=== PATIENT | male | born 1985 | race Caucasian/White ===

== ENCOUNTER 2019-06-26 10:14 | Emergency (ER) | payer MEDICAID ==
[~2019-06-26] VITALS: Ht 182.9 cm; Wt 99.8 kg
[2019-06-26 10:55] LABS: BASOPHILS # (AUTO) 0.1 /CMM (0.0-0.2); BASOPHILS % (AUTO) 0.7 % (0.0-2.0); EOSINOPHILS % (AUTO) 0.7 % (0.0-6.0); HEMATOCRIT 46 % (39-51); HEMOGLOBIN 15.5 g/dL (13.5-17.5); LYMPHOCYTES % (AUTO) 20.3 % (20.0-44.0); MEAN CORPUSCULAR HGB CONC 34 g/dl (31.0-36.0); MEAN CORPUSCULAR VOLUME 88 fL (80-96); MONOCYTES # (AUTO) 1.3 /CMM (0.1-1.30); MONOCYTES % (AUTO) 8.7 % (2.0-12.0); NEUTROPHILS # (AUTO) 10.4 /CMM (1.8-8.9); NEUTROPHILS % (AUTO) 69.6 % (43.0-81.0); PLATELET COUNT (AUTO) 188 /CMM (150-450); WHITE BLOOD COUNT (AUTO) 14.9 K/uL (4.3-11.0)
[2019-06-26] MEDS ORDERED: IV NS 0.9% 1,000 ML BAG IV ONE (11:00)
[2019-06-26 11:02] LABS: CALCIUM, SERUM 9.4 mg/dL (8.5-10.1); POTASSIUM 4.8 mmol/L (3.5-5.1)
[2019-06-26] MEDS ORDERED: CT SWABBABLE VALVE TRANS SET 1 EA INFUS.SET MC ONE (11:18)
[2019-06-26] MEDS ORDERED: IOHEXOL-300 100 ML VIAL IV ONE (11:18)
[2019-06-26] MEDS ORDERED: IV NS 0.9% 250 ML IV ONE (11:18)
--- NOTE | 2019-06-26 12:56 | NUR ---
CALLED [facility] TO SPEAK WITH RADIOLOGIST. CURRENTLY AWAY AT [facility]. LEFT PHONE NUMBER FOR THEM TO CALL BACK AT EARLIEST AVAILABLE.
[2019-06-26] MEDS ORDERED: HYDROMORPHONE 1 MG/1 ML DISP.SYRIN IV ONE (13:00)
[2019-06-26] MEDS ORDERED: HYDROMORPHONE HCL 2 MG TABLET PO PRN (13:00)
[2019-06-26] MEDS ORDERED: HYDROMORPHONE 1 MG/1 ML DISP.SYRIN ONE (13:08)
--- NOTE | 2019-06-26 14:44 | NUR ---
Dr. Quesada @ bedside regarding result of CT
[2019-06-26] MEDS ORDERED: IBUPROFEN 600 MG TABLET PO ONE ×2 (14:47→15:00)
--- NOTE | 2019-06-26 14:55 | NUR ---
Called [facility] for Antibiotic Meds
[2019-06-26] MEDS ORDERED: CLINDAMYCIN 600 MG in IV D5W 100 ML IV ONE (15:00)
[2019-06-26] MEDS ORDERED: CEFTRIAXONE 1GM BAG (ER ONLY) 1 GM/50 ML PIGGYBACK IV ONE (15:00)
[2019-06-26] MEDS ORDERED: CEFTRIAXONE 2 G in IV D5W 100 ML IV ONE (15:00)
[2019-06-26] MEDS ORDERED: DEXAMETHASONE SOD PHOSPHATE 10 MG/ML VIAL IV ONE (15:00)
[2019-06-26] MEDS ORDERED: DEXAMETHASONE SOD PHOSPHATE 10 MG/ML VIAL ONE (15:15)
[2019-06-26 16:00] VITALS: BP 133/78
--- NOTE | 2019-06-26 16:01 | NUR ---
Patient discharged to home in stable condition. Written and verbal after care instructions given. Patient verbalizes understanding of instruction.
--- NOTE | 2019-06-26 16:01 | NUR ---
Removed helplock from RAC noted cath intact no redness ,no edema
== END 2019-06-26 16:02 | disposition home or self-care (01) ==
LOC: ER 10:14
DX: J03.90 Acute tonsillitis, unspecified (principal); I10 Essential (primary) hypertension; F17.200 Nicotine dependence, unspecified, uncomplicated; Z90.49 Acquired absence of other specified parts of digestive tract
CPT/HCPCS: 36415; 70491; 80048; 85025; 96365; 96367; 96375; 99284; J0696; J1100; J1170; J3490; J7030; J7050; J7060 ×2; Q9967

== ENCOUNTER 2020-11-29 11:20 | Emergency (ER) | payer MEDICAID, OTHER ==
[~2020-11-29] VITALS: Ht 182.9 cm; Wt 95.3 kg
[2020-11-29] MEDS ORDERED: FAMOTIDINE (20 MG) 20 MG TABLET PO ONE (11:30)
[2020-11-29] MEDS ORDERED: diphenhydrAMINE HCL 50 MG/ML VIAL IV ONE (11:30)
[2020-11-29] MEDS ORDERED: methylPREDNISolone SOD SUCC 125 MG/2ML VIAL IV ONE (11:30)
[2020-11-29] MEDS ORDERED: IV NS 0.9% 1,000 ML IV ONE (11:30)
--- NOTE | 2020-11-29 11:30 | NUR ---
The patient bibs for c/o rash and hives started last night, no SOB 98% on room air. Respiration regular and unlabored. Will continue to monitor the patient.
[2020-11-29] MEDS ORDERED: methylPREDNISolone SOD SUCC 125 MG/2ML VIAL ONE (11:31)
[2020-11-29] MEDS ORDERED: diphenhydrAMINE HCL 50 MG/ML VIAL ONE (11:31)
[2020-11-29] MEDS ORDERED: FAMOTIDINE/PF INJ 20 MG/2 ML VIAL IV ONE (11:32)
[2020-11-29] MEDS ORDERED: PRED20TA PO (12:08)
[2020-11-29] MEDS ORDERED: EPIN0.3P3 IJ (12:08)
[2020-11-29] MEDS ORDERED: DIPH25CA83 PO (12:08)
[2020-11-29] MEDS ORDERED: FAMO-131 PO (12:08)
--- NOTE | 2020-11-29 12:14 | NUR ---
Patient discharged to home in stable condition. Written and verbal after care instructions given. Patient verbalizes understanding of instruction.
[2020-11-29 12:15] VITALS: BP 127/74
== END 2020-11-29 12:15 | disposition home or self-care (01) ==
LOC: ER 11:34
DX: T78.40XA Allergy, unspecified, initial encounter (principal); I10 Essential (primary) hypertension; F17.200 Nicotine dependence, unspecified, uncomplicated; Z90.49 Acquired absence of other specified parts of digestive tract; X58.XXXA Exposure to other specified factors, initial encounter
CPT/HCPCS: 96361; 96374; 96375; 99284; J1200; J2930; J3490; J7030

== ENCOUNTER 2024-12-03 14:42 | Emergency (ER) | payer MEDICAID, OTHER ==
[~2024-12-03] VITALS: Ht 182.9 cm; Wt 79.4 kg
[~2024-12-03 14:42] MED LIST: DIPH25CA83 PO; EPIN0.3P3 IJ; FAMO-131 PO; PRED20TA PO
[2024-12-03 17:20] VITALS: TEMP 98.3
[2024-12-03] MEDS ORDERED: KETOROLAC TROMETHAMINE 15 MG/ML VIAL ONE (18:21)
[2024-12-03] MEDS: KETOROLAC TROMETHAMINE 15 MG/ML VIAL IM ONE (18:28)
[2024-12-03 19:03] VITALS: BP 115/75; O2SAT 98
== END 2024-12-03 19:03 | disposition home or self-care (01) ==
LOC: ER 14:49
DX: S42.032A Displaced fracture of lateral end of left clavicle, initial encounter for closed fracture (principal); F17.200 Nicotine dependence, unspecified, uncomplicated; I10 Essential (primary) hypertension; M54.6 Pain in thoracic spine; Z79.52 Long term (current) use of systemic steroids; Z90.49 Acquired absence of other specified parts of digestive tract; W18.30XA Fall on same level, unspecified, initial encounter; Y93.02 Activity, running; Y92.89 Other specified places as the place of occurrence of the external cause; Y99.8 Other external cause status
CPT/HCPCS: 99283; 96372; 73030; J1885